=== PATIENT | female | born 1950 | race Caucasian/White ===

== ENCOUNTER → 2016-12-20 | Outpatient (CLI) | payer MEDICARE, OTHER ==
[~2016-12-20] MED LIST: ASPI-345 PO; CHOL100048 PO; CTLP20T PO; MAGN400C PO; METO25TA60 PO; MICRO K PO; OMEP20TA33 PO; OXYC1TAB87 PO; OXYC5CAP4 PO; TACR1CAP PO; URSO250T11 PO
[2016-12-20 08:35] LABS: ALBUMIN 4.2 g/dL (3.4-5.0); ANION GAP 14.7 MEQ/L (3-15); CALCULATED IONIZED CALCIUM 4.2 mg/dL (3.8-4.6); TOTAL PROTEIN 7.3 g/dL (6.4-8.5)
== END ==
LOC: LAB 07:41
PROVIDERS: ATTEND Family Medicine
DX: Z94.4 Liver transplant status (principal)
CPT/HCPCS: 36415; 80053; 80197